=== PATIENT | male | born 1975 | race Caucasian/White ===

== ENCOUNTER 2024-05-29 19:07 | Emergency (ER) | payer SELFPAY ==
[~2024-05-29] VITALS: Ht 175.3 cm; Wt 72.6 kg
[2024-05-29] MEDS ORDERED: DICYCLOMINE HCL LIQ 10 MG/5 ML UDC ONE (21:20)
[2024-05-29] MEDS ORDERED: DIPHENOXYLATE HCL/ATROP SULF TABLET ONE (21:20)
[2024-05-29] MEDS ORDERED: ONDANSETRON 4 MG/2 ML VIAL ONE (21:20)
[2024-05-29 21:24] LABS: BASOPHILS % (AUTO) 0.3 % (0.0-2.0); EOSINOPHILS % (AUTO) 0.2 % (0.0-7.0); HEMATOCRIT 26.2 % (36.7-47.1); HEMOGLOBIN 8.7 g/dL (12.5-16.3); LYMPHOCYTES # (AUTO) 1.5 K/uL (0.8-4.8); LYMPHOCYTES % (AUTO) 12.1 % (20.5-51.5); MEAN CORPUSCULAR HEMOGLOBIN 27.8 uug (23.8-33.4); MEAN CORPUSCULAR HGB CONC 33 g/dL (32.5-36.3); MEAN CORPUSCULAR VOLUME 83.8 fL (73.0-96.2); MONOCYTES # (AUTO) 0.8 K/uL (0.1-1.30); MONOCYTES % (AUTO) 6.1 % (0.0-11.0); NEUTROPHILS # (AUTO) 10.1 K/uL (1.8-8.9); NEUTROPHILS % (AUTO) 81.3 % (38.5-71.5); PLATELET COUNT (AUTO) 362 K/uL (152-348); RED BLOOD CELL COUNT(AUTO) 3.13 MIL/uL (4.06-5.63); RED CELL DISTRIBUTION WIDTH 15.6 % (12.1-16.2); WHITE BLOOD COUNT (AUTO) 12.4 K/uL (3.6-10.2)
[2024-05-29 21:30] LABS: CALCIUM 8.4 mg/dL (8.5-10.1); CREATININE 0.8 mg/dL (0.6-1.3); POTASSIUM 3.3 mmol/L (3.5-5.1)
[2024-05-29] MEDS: IV LACTATED RINGERS SOLUTION 1,000 ML IV ONE (21:31)
[2024-05-29] MEDS: ONDANSETRON 4 MG/2 ML VIAL IV ONE (21:32)
[2024-05-29 21:34] LABS: DIFFERENTIAL COMMENT 1
[2024-05-29 21:36] LABS: BILIRUBIN,TOTAL 0.6 mg/dL (0.2-1.0); TOTAL PROTEIN, SERUM 5.5 g/dL (6.4-8.2)
[2024-05-29] MEDS ORDERED: ONDA4TAB11 PO (21:44)
[2024-05-29] MEDS ORDERED: LOPE-195 PO (21:44)
[2024-05-29] MEDS ORDERED: DICY20TA11 PO (21:44)
[2024-05-29] MEDS: DIPHENOXYLATE HCL/ATROP SULF TABLET PO ONE (22:10)
[2024-05-29] MEDS: DICYCLOMINE HCL LIQ 10 MG/5 ML UDC PO ONE (22:10)
[2024-05-29 22:43] LABS: *OCCULT BLOOD STOOL POSITIVE (NEGATIVE)
[2024-05-29] MEDS ORDERED: levoFLOXacin 500 MG TABLET ONE (22:57)
[2024-05-29] MEDS: levoFLOXacin 500 MG TABLET PO ONE (22:58)
[2024-05-29] MEDS ORDERED: LEVO500T90 PO (23:10)
[2024-05-30] MEDS ORDERED: ONDANSETRON 4 MG/2 ML VIAL ONE (00:30)
[2024-05-30] MEDS: ONDANSETRON 4 MG/2 ML VIAL IV ONE (00:32)
[2024-05-30 00:42] VITALS: BP 121/76; TEMP 98.6; O2SAT 98
== END 2024-05-30 00:45 | disposition home or self-care (01) ==
LOC: ER 19:10
DX: D62 Acute posthemorrhagic anemia (principal); R19.7 Diarrhea, unspecified; R11.2 Nausea with vomiting, unspecified
CPT/HCPCS: 99284; 96374; 96361; 82270; 80053; 85025; 36415; 96376; J2405 ×2; J7120; A4606; A4663